=== PATIENT | female | born 1995 | race Caucasian/White ===

== ENCOUNTER 2021-07-15 10:42 | Emergency (ER) | payer BC, SELFPAY ==
--- NOTE | ~2021-07-15 | US_ITS ---
EXAMINATION: US PELVIS CLINICAL INFORMATION: Severe pelvic pain COMPARISON: None TECHNIQUE: Ultrasound of the pelvis is performed using both transabdominal and transvaginal transducers along with Doppler. Transvaginal imaging is performed due to inadequate visualization transabdominally. FINDINGS: Uterus: The uterus is anteverted and measures 7.7 x 3.4 x 5.0 cm. No cervical abnormality appreciated. The double wall endometrial thickness is 10 mm. The uterus is smooth in contour and has normal myometrial echogenicity. No visible fibroid. Adnexa: Both ovaries are visualized. There is normal color flow to the adnexa. There is no ovarian torsion. There is a moderate amount of free pelvic fluid. Right ovary measures 4.9 x 3.3 x 2.5 cm. There is a 2.7 x 1.4 x 1.6 cm heterogeneous complex cyst present posteriorly representing a resolving ruptured cyst. Left ovary measures 3.6 x 2.4 x 1.9 cm. No abnormality appreciated. US/US pelvic and transvaginal IMPRESSION: Complex cystic structure within the right adnexa with the appearance of a ruptured hemorrhagic cyst. Moderate amount of free pelvic fluid.
--- NOTE | ~2021-07-15 | US_ITS ---
EXAMINATION: ULTRASOUND PELVIC OVARIAN DOPPLER CLINICAL INFORMATION: Severe pelvic pain COMPARISON: None TECHNIQUE: Real-time ultrasound and Doppler techniques (integrating B-mode 2D vascular images, Doppler spectral analysis and color flow Doppler imaging) were utilized to interrogate the bilateral adnexa FINDINGS: Uterus: The uterus is anteverted and measures 7.7 x 3.4 x 5.0 cm. No cervical abnormality appreciated. The double wall endometrial thickness is 10 mm. The uterus is smooth in contour and has normal myometrial echogenicity. No visible fibroid. Adnexa: Both ovaries are visualized. There is normal color flow to the adnexa. There is no ovarian torsion. There is a moderate amount of free pelvic fluid. Right ovary measures 4.9 x 3.3 x 2.5 cm. There is a 2.7 x 1.4 x 1.6 cm heterogeneous complex cyst present posteriorly representing a resolving ruptured cyst. Left ovary measures 3.6 x 2.4 x 1.9 cm. No abnormality appreciated. US/US pelvic ovarian doppler IMPRESSION: Complex cystic structure within the right adnexa with the appearance of a ruptured hemorrhagic cyst. Moderate amount of free pelvic fluid. Normal Doppler spectral analysis of the bilateral adnexa.
[2021-07-15 10:50] VITALS: BP 117/77; PULSE 77; RESP 16; TEMP 36.8; O2SAT 97; BMI 23.8
--- NOTE | 2021-07-15 11:15 | ED.FEMALEGU ---
HPI - Female Genitourinary General Chief complaint: Urogenital-Female Stated complaint: Ovarian cyst Time Seen by Provider: 07/15/21 10:56 Source: patient Mode of arrival: ambulatory Limitations: no limitations History of Present Illness HPI Narrative: 25 y/o female with history of a hemorrhagic ovarian cyst presents to the ER with acute onset of severe lower abdominal and pelvic pain that started this morning when she was having intercourse with her boyfriend. She reports no pain prior to intercourse. She reports the pain was sharp, constant and severe in her lower abdomen and suprapubic area. She took 2 Tylenol and the pain is starting to subside. She denies any vaginal bleeding, vaginal discharge, concern for STI. She reports similar episode 2 or 3 years ago when she was found to have a hemorrhagic ovarian cyst. No treatment was for this they just monitor diet. Her last menstrual period was the beginning of June and she is due for her menses now. She is not on control. She has never been . She reports nausea when the pain was severe but that has subsided. No vomiting or diarrhea. No fever or chills. MD elicited complaint: pelvic pain Onset (ago): hour(s) Location of symptoms: vaginal and pelvis Severity: severe Severity scale (1-10): 8 Quality of pain: sharp Consistency: improved Vaginal discharge: none Vaginal bleeding: none Exacerbating factors: intercourse, movement and palpation Relieving factors: medication Associated symptoms: nausea, painful and intercourse Treatment prior to arrival: acetaminophen Sexual activity: Yes Possible : unsure if Date of Last Menstrual Period: 06/15/21 Related Data Allergies Allergy/AdvReac Type Severity Reaction Status Date / Time No Known Allergies Allergy Verified 07/15/21 10:50 Review of Systems Review of Systems: Constitutional: No Fever, No Chills ENT/Mouth: No sore throat, No Rhinorrhea Cardiovascular: No Chest Pain, No SOB, No Orthopnea, No Edema Respiratory: No Cough, No Sputum, No Wheezing, No dyspnea Gastrointestinal: + Nausea, No Vomiting, No Diarrhea, + abdominal Pain, No Hematochezia, No Melena Genitourinary: No Dysuria, No Urinary Frequency, No Hematuria, No vaginal discharge, No vaginal bleeding Musculoskeletal: No joint pain, No Myalgias Skin: No Skin Lesions, No rash Neuro: No Weakness, No Numbness, No Dizziness, No Headache Psych: + Anxiety/Panic, No Depression Heme/Lymph: No Bruising, No Lymphadenopathy Endocrine: No Polyuria, No Polydipsia PMF Past Medical History Medical History (Updated 07/15/21 @ 14:32 by CAROL Nevarez) Ovarian cyst Date of Last Menstrual Period: 06/15/21 Social History Social History Alcohol intake: never Patient Tobacco Use Status: Never used Tobacco Use of substances other than those prescribed or required for medical reasons: No Advance Directives: No Advance Directives Information Provided: No Patient : No Physical Exam Vital Signs: Vital Signs: Last Vital Signs Temp 98.3 F 07/15/21 15:24 Pulse 67 07/15/21 15:24 Resp 16 07/15/21 15:24 BP 113/80 07/15/21 15:24 Pulse Ox 100 07/15/21 15:24 BMI result Body Mass Index 23.8 Course Course Course Narrative: 25-year-old female with a history of hemorrhagic ovarian cyst presents to the ER with lower abdominal pain and pelvic pain that started this morning when she was having intercourse. The pain is significantly improved after dose of Tylenol. She is late for her menses, she is not concerned for any STDs. She denies any vaginal bleeding or vaginal discharge. Will check for and check pelvic ultrasound to assess versus and rule out torsion. She is declining any need for any pain medications at this time. Reevaluation(s) Reevaluation #1: H&H with mild anemia 11.9/36.0. Pelvic ultrasound is showing a complex right adnexal cyst consistent with a ruptured hemorrhagic cyst. There is moderate free fluid in the pelvis. Her pain continues to be well controlled. She is hemodynamically stable. Will plan to repeat her H&H in 4 hours. Reevaluation #2: Repeat H&H in 4 hours was stable. 11.9/35.9. Her pain remains well controlled. She is stable for discharge home with plan to follow-up with her OBGYN in and field. She lives and subcu [place]. She has declined need for pain meds. She is stable for DC with close outpatient follow-up. MDM - Female Genitourinary Lab Data Result diagrams: 07/15/21 16:08 07/15/21 12:13 Labs: Lab Results 07/15/21 07/15/21 07/15/21 Range/Units 12:13 12:13 12:14 WBC 9.0 (4.8-10.8) X10*3/uL RBC 4.06 L (4.20-5.50) X10*6/uL Hgb 11.9 L (12.0-16.0) g/dl Hct 36.0 L (37.0-47.0) % MCV 88.7 (80.0-98.0) fL MCH 29.3 (27.0-33.0) pg MCHC 33.1 (31.0-35.0) g/dl RDW 12.4 (11.0-16.0) % Plt Count 210 (160-400) X10*3/uL MPV 9.3 L (9.4-12.3) fL Immature Gran % (Auto) 0.4 (0.0-0.4) % Neut % (Auto) 78.0 H (45-73) % Lymph % (Auto) 14.8 L (20-40) % [place] % (Auto) 5.6 (2-11) % Eos % (Auto) 0.9 (0-4) % Baso % (Auto) 0.3 (0-2) % Lymph # (Auto) 1.3 (1.2-4.9) X10*3/uL [place] # (Auto) 0.5 (0.1-1.2) X10*3/uL Eos # (Auto) 0.1 (0.0-0.4) X10*3/uL Baso # (Auto) 0.0 (0.0-0.2) X10*3/uL Abs Immat Gran (auto) 0.04 H (0.00-0.03) X10*3/uL Absolute Neuts (auto) 7.0 (2.0-8.3) x10*3/uL Absolute Nucleated RBC 0.000 (0.0-0.012) X10*3/uL Nucleated RBC % (auto) 0.0 (0.0-0.2) /100WBC Sodium 135 (135-145) mmol/L Potassium 4.7 (3.3-5.1) mmol/L Chloride 103 (96-108) mmol/L Carbon Dioxide 25 (22-29) mmol/L Anion Gap 12 (12-20) BUN 11 (9-16) mg/dL Creatinine 0.71 (0.5-1.4) mg/dL Estim Creat Clear Calc 97.4 Estimated GFR > 60 Random Glucose 90 (60-115) mg/dL Calcium 10.0 (8.4-10.2) mg/dL Magnesium 1.9 (1.6-2.6) mg/dL Total Bilirubin 0.5 (0.0-1.0) mg/dL Direct Bilirubin 0.2 (0.0-0.5) mg/dL AST 15 (5-31) U/L ALT 8 (0-31) U/L Alkaline Phosphatase 61 (39-117) U/L Total Protein 7.2 (6.5-8.0) g/dL Albumin 4.3 (3.5-5.0) g/dL Urine Color STRAW Urine Appearance HAZY Urine pH 8.5 H (5.0-8.0) Ur Specific [place] 1.015 (1.005-1.025) Urine Protein NEG (NEG-TRACE) MG/DL Urine Glucose (UA) NEG (NEG) MG/DL Urine Ketones NEG (NEG) MG/DL Urine Blood NEG (NEG) Urine Nitrite NEG (NEG) Ur Leukocyte Esterase NEG (NEG) Urine Test (NEGATIVE) 07/15/21 07/15/21 Range/Units 12:14 16:08 WBC (4.8-10.8) X10*3/uL RBC (4.20-5.50) X10*6/uL Hgb 11.9 L (12.0-16.0) g/dl Hct 35.9 L (37.0-47.0) % MCV (80.0-98.0) fL MCH (27.0-33.0) pg MCHC (31.0-35.0) g/dl RDW (11.0-16.0) % Plt Count (160-400) X10*3/uL MPV (9.4-12.3) fL Immature Gran % (Auto) (0.0-0.4) % Neut % (Auto) (45-73) % Lymph % (Auto) (20-40) % [place] % (Auto) (2-11) % Eos % (Auto) (0-4) % Baso % (Auto) (0-2) % Lymph # (Auto) (1.2-4.9) X10*3/uL [place] # (Auto) (0.1-1.2) X10*3/uL Eos # (Auto) (0.0-0.4) X10*3/uL Baso # (Auto) (0.0-0.2) X10*3/uL Abs Immat Gran (auto) (0.00-0.03) X10*3/uL Absolute Neuts (auto) (2.0-8.3) x10*3/uL Absolute Nucleated RBC (0.0-0.012) X10*3/uL Nucleated RBC % (auto) (0.0-0.2) /100WBC Sodium (135-145) mmol/L Potassium (3.3-5.1) mmol/L Chloride (96-108) mmol/L Carbon Dioxide (22-29) mmol/L Anion Gap (12-20) BUN (9-16) mg/dL Creatinine (0.5-1.4) mg/dL Estim Creat Clear Calc Estimated GFR Random Glucose (60-115) mg/dL Calcium (8.4-10.2) mg/dL Magnesium (1.6-2.6) mg/dL Total Bilirubin (0.0-1.0) mg/dL Direct Bilirubin (0.0-0.5) mg/dL AST (5-31) U/L ALT (0-31) U/L Alkaline Phosphatase (39-117) U/L Total Protein (6.5-8.0) g/dL Albumin (3.5-5.0) g/dL Urine Color Urine Appearance Urine pH (5.0-8.0) Ur Specific [place] (1.005-1.025) Urine Protein (NEG-TRACE) MG/DL Urine Glucose (UA) (NEG) MG/DL Urine Ketones (NEG) MG/DL Urine Blood (NEG) Urine Nitrite (NEG) Ur Leukocyte Esterase (NEG) Urine Test NEGATIVE (NEGATIVE) Critical Care Time Critical Care Time Critical Care Time: No Discharge Plan Discharge Clinical Impression: Hemorrhagic cyst of right ovary Patient Disposition: Home, Self-Care Instructions: Ovarian Cyst (ED) Additional Instructions: US showed complex cystic structure within the right adnexa with the appearance of a ruptured hemorrhagic cyst. Moderate amount of free pelvic fluid Your blood counts were stable. Your blood counts remained stable today. Recommend Motrin and Tylenol for ongoing pain and discomfort. Recommend following up with your OBGYN as soon as possible. If you develop new or worsening symptoms call 911 or come back to the ER for further evaluation.
[2021-07-15 12:19] LABS: MANUAL DIFF FLAG NO
[2021-07-15 12:21] LABS: Basophils Percent Auto 0.3 % (0-2); Eosinophils Absolute Auto 0.1 X10*3/uL (0.0-0.4); Eosinophils Percent Auto 0.9 % (0-4); Hemoglobin 11.9 g/dl (12.0-16.0); Imm Gran Abs Auto 0.04 X10*3/uL (0.00-0.03); Imm Gran Pct Auto 0.4 % (0.0-0.4); Lymphocytes Absolute Auto 1.3 X10*3/uL (1.2-4.9); Lymphocytes Percent Auto 14.8 % (20-40); Mean Corpuscular HGB Conc 33.1 g/dl (31.0-35.0); Mean Corpuscular Hemoglobin 29.3 pg (27.0-33.0); Mean Corpuscular Volume 88.7 fL (80.0-98.0); Mean Platelet Volume 9.3 fL (9.4-12.3); Monocytes Absolute Auto 0.5 X10*3/uL (0.1-1.2); Monocytes Percent Auto 5.6 % (2-11); Platelet Count 210 X10*3/uL (160-400); Red Blood Count 4.06 X10*6/uL (4.20-5.50); Red Cell Distribution Width 12.4 % (11.0-16.0)
[2021-07-15 12:22] LABS: Appearance Urine HAZY; Color Urine STRAW; Glucose Urine UA NEG (NEG); Leukocyte Esterase Urine NEG (NEG); Nitrite Urine NEG (NEG); PH 8.5 (5.0-8.0); Specific Gravity - Urine 1.015 (1.005-1.025); Urine Blood NEG (NEG); Urine Ketones NEG (NEG); Urine Protein NEG (NEG-TRACE)
[2021-07-15 12:25] LABS: UPreg QC Valid YES; Urine Pregnancy NEGATIVE (NEGATIVE)
[2021-07-15 12:41] LABS: Alanine Aminotransferase 8 U/L (0-31); Albumin Level 4.3 g/dL (3.5-5.0); Alkaline Phosphatase 61 U/L (39-117); Anion Gap 12 (12-20); Aspartate Amino Transferase 15 U/L (5-31); Bilirubin Direct 0.2 mg/dL (0.0-0.5); Bilirubin Total 0.5 mg/dL (0.0-1.0); Blood Urea Nitrogen 11 mg/dL (9-16); Carbon Dioxide 25 mmol/L (22-29); Chloride 103 mmol/L (96-108); Creatinine Clr Calc Pharmacy 97.4; Estimated Glomerular Filt Rate > 60; Glucose Random 90 mg/dL (60-115); Magnesium 1.9 mg/dL (1.6-2.6); Potassium 4.7 mmol/L (3.3-5.1); Sodium 135 mmol/L (135-145); Total Protein 7.2 g/dL (6.5-8.0)
[2021-07-15 13:55] VITALS: BP 130/74; PULSE 67; RESP 16; O2SAT 100
[2021-07-15 14:23] VITALS: BP 117/63; PULSE 73; RESP 18; TEMP 36.8; O2SAT 99
--- NOTE | 2021-07-15 14:26 | PC.NURSE ---
Pt states she has residual lower abd pressure . denies vag bleeding.
[2021-07-15 15:24] VITALS: BP 113/80; PULSE 67; RESP 16; TEMP 36.8; O2SAT 100
--- NOTE | 2021-07-15 16:20 | PC.NURSE ---
resting quietly. no complaints.
[2021-07-15 16:26] LABS: Hematocrit 35.9 % (37.0-47.0); Hemoglobin 11.9 g/dl (12.0-16.0)
== END 2021-07-15 16:44 | disposition home or self-care (01) ==
PROVIDERS: Physician Assistant; Emergency Provider Emergency Medicine
DX: N83.201 Unspecified ovarian cyst, right side (principal); R10.2 Pelvic and perineal pain; R11.0 Nausea; Z79.899 Other long term (current) drug therapy
CPT/HCPCS: 36415; 76830; 76856; 80048; 80076; 81003; 81025; 83735; 85014; 85018; 85025; 93975; 99284